=== PATIENT | male | born 1965 | race Caucasian/White ===

== ENCOUNTER → 2019-01-09 | Outpatient (CLI) | payer BC ==
--- NOTE | 2019-01-09 16:18 | REP ---
Five views lumbar spine: 01/09/2019. Indication: Low back pain. Comparison: None. Findings: There is no acute lumbar spine fracture, subluxation or dislocation. Chronic central compression deformities of L4-L5 are noted with minimal compression present. Numerous surgical clips and anchors are noted. Impression: No acute osseous injury of the lumbar spine detected. Electronically Signed by Luigi Panda DO 01/09/2019 04:09 P
== END ==
LOC: M WUC 15:51
PROVIDERS: ATTEND Nurse Practitioner Family
DX: M54.5 Low back pain (principal)